=== PATIENT | male | born 1945 | race Caucasian/White ===

== ENCOUNTER 2017-10-02 20:19 | Emergency (ER) | payer OTHER ==
[~2017-10-02] VITALS: Ht 167.6 cm; Wt 79.6 kg
[2017-10-02 20:22] VITALS: Ht 167.6 cm; Wt 79.6 kg
[2017-10-02] MEDS ORDERED: SODIUM CHLORIDE 0.9% 1000ML 1,000 ML IV STA ×2 (20:33→21:39)
[2017-10-02] MEDS ORDERED: ACETAMINOPHEN 500 MG TAB PO STA (20:33)
[2017-10-02] MEDS ORDERED: ALBUT/IPRATROP 3MG/0.5MG NEB 3 ML VIAL INH STA ×2 (20:33→21:39)
--- NOTE | 2017-10-02 20:42 | EMERGENCY ROOM VISIT NOTE ---
History Report prepared by Ramon: Chandler Elizondo Under the Supervision of: Dr. Mello Banks M.D. First contact with patient: 20:30 Chief Complaint: WEAKNESS Stated Complaint: WEAK,FLUID ON LUNGS History of Present Illness The patient is a 72 year old male who presents to the Emergency Room with complaints of worsening generalized weakness for the past week. The patient additionally is complaining of cough, nasal congestion, and fluid on his lungs. He states that he does not smoke or drink alcohol, he is not on a water pill, and he has no history of heart failure. The patient states that he does not take any medications, and he has not seen his PCP in a couple of years. He denies any chest pain, nausea, vomiting, diarrhea, and pain with urination. He states that no one around him has been sick. Source of History: patient Onset: week ago Position: other (generalized) Quality: other (weakness) Timing: worsening Associated Symptoms: + cough, No chest pain, No nausea, No vomiting, No diarrhea Note: Associated symptoms: nasal congestion and fluid on his lungs. Review of Systems See HPI for pertinent positives and negatives. A total of ten systems were reviewed and were otherwise negative. Past Medical & Surgical Medical Problems: (1) Diabetes (2) HTN (hypertension) Family History Cancer Diabetes mellitus Gallbladder disease Heart disease Hypertension Social History Smoking Status: Never Smoker Housing Status: lives with family Current/Historical Medications Scheduled Levofloxacin (Levaquin), 750 MG PO DAILY Oseltamivir Phosphate (Tamiflu), 1 CAP PO BID Saccharomyces Boulardii (Florastor), 1 CAP PO BID Allergies Coded Allergies: Aspirin (Verified Allergy, Intermediate, "it puts holes in my stomach", ) Lactose (Verified Allergy, Mild, 10/16/15) INTOLERANT Physical Exam Vital Signs Date Time Temp Pulse Resp B/P (MAP) Pulse Ox O2 Delivery O2 Flow Rate FiO2 10/02/17 23:53 91 18 133/63 94 10/02/17 23:01 36.7 96 18 136/81 94 Room Air 10/02/17 22:01 95 25 133/73 94 Room Air 10/02/17 21:30 104 20 141/73 93 Room Air 10/02/17 21:11 93 10/02/17 20:22 38.5 103 24 131/76 97 Room Air Physical Exam GENERAL: Awake, alert, fatigued and uncomfortable-appearing, dyspneic, in no distress HENT: Normocephalic, atraumatic. Dry cracked mucous membranes otherwise oropharynx unremarkable. EYES: Normal conjunctiva. Sclera non-icteric. NECK: Supple. No nuchal rigidity. FROM. No JVD. RESPIRATORY: Diminished breath sounds at the bases with scant intermittent wheeze CARDIAC: Regular rate, normal rhythm. Extremities warm and well perfused. Pulses equal. ABDOMEN: Soft, non-distended. No tenderness to palpation. No rebound or guarding. No masses. RECTAL: Deferred. MUSCULOSKELETAL: Chest examination reveals no tenderness. The back is symmetrical on inspection without obvious abnormality. There is no CVA tenderness to palpation. No joint edema. LOWER EXTREMITIES: Calves are equal size bilaterally and non-tender. No edema. No discoloration. NEURO: Normal sensorium. No sensory or motor deficits noted. SKIN: No rash or jaundice noted. Medical Decision & Procedures ER Provider Diagnostic Interpretation: Radiology results as stated below per my review and radiologist interpretation: SINGLE VIEW CHEST CLINICAL HISTORY: Fever. Sepsis. FINDINGS: An AP, portable, upright chest radiograph is compared to study dated 10/16/2015. The examination is mildly degraded by portable technique and patient rotation. The heart is enlarged and there is atherosclerotic calcification of the thoracic aorta. The pulmonary vasculature is noncongested. Airspace consolidation is seen at the left lung base. The right lung appears clear. No large pleural effusion or pneumothorax is seen. The skeletal structures are osteopenic. The bony thorax is grossly intact. IMPRESSION: 1. Cardiomegaly without radiographic evidence of congestive failure. 2. There is airspace consolidation at the left lung base, likely representing pneumonia/aspiration pneumonitis. Clinical correlation will be required and radiographic follow-up to resolution is recommended. Electronically signed by: Cesar Dong M.D. 10/02/2017 9:02 PM Dictated Date/Time: 10/02/2017 9:01 PM Laboratory Results 10/02/17 20:38 Red Blood Count 5.05, Mean Corpuscular Volume 82.4, Mean Corpuscular Hemoglobin 30.7, Mean Corpuscular Hemoglobin Concent 37.3, Mean Platelet Volume 11.0, Neutrophils (%) (Auto) 69.2, Lymphocytes (%) (Auto) 16.6, Monocytes (%) (Auto) 13.7, Eosinophils (%) (Auto) 0.0, Basophils (%) (Auto) 0.2, Neutrophils # (Auto ) 4.28, Lymphocytes # (Auto) 1.03, Monocytes # (Auto) 0.85, Eosinophils # (Auto ) 0.00, Basophils # (Auto) 0.01 10/02/17 20:38 Test 10/02/17 20:38 10/02/17 20:51 10/02/17 21:00 10/02/17 21:28 White Blood Count 6.19 K/uL (4.8-10.8) Red Blood Count 5.05 M/uL (4.7-6.1) Hemoglobin 15.5 g/dL (14.0-18.0) Hematocrit 41.6 % (42-52) Mean Corpuscular Volume 82.4 fL (80-100) Mean Corpuscular Hemoglobin 30.7 pg (25-34) Mean Corpuscular Hemoglobin Concent 37.3 g/dl (32-36) Platelet Count 102 K/uL (130-400) Mean Platelet Volume 11.0 fL (7.4-10.4) Neutrophils (%) (Auto) 69.2 % Lymphocytes (%) (Auto) 16.6 % Monocytes (%) (Auto) 13.7 % Eosinophils (%) (Auto) 0.0 % Basophils (%) (Auto) 0.2 % Neutrophils # (Auto) 4.28 K/uL (1.4-6.5) Lymphocytes # (Auto) 1.03 K/uL (1.2-3.4) Monocytes # (Auto) 0.85 K/uL (0.11-0.59) Eosinophils # (Auto) 0.00 K/uL (0-0.5) Basophils # (Auto) 0.01 K/uL (0-0.2) RDW Standard Deviation 35.3 fL (36.4-46.3) RDW Coefficient of Variation 11.8 % (11.5-14.5) Immature Granulocyte % (Auto) 0.3 % Immature Granulocyte # (Auto) 0.02 K/uL (0.00-0.02) Large Platelets 1+ Microcytosis PRESENT Anion Gap 7.0 mmol/L (3-11) Est Creatinine Clear Calc Drug Dose 61.1 ml/min Estimated GFR () 77.9 Estimated GFR (Non- 67.2 BUN/Creatinine Ratio 12.6 (10-20) Calcium Level 8.3 mg/dl (8.5-10.1) Magnesium Level 1.8 mg/dl (1.8-2.4) Total Bilirubin 0.8 mg/dl (0.2-1) Direct Bilirubin 0.2 mg/dl (0-0.2) Aspartate Amino Transf (AST/SGOT) 16 U/L (15-37) Alanine Aminotransferase (ALT/SGPT) 21 U/L (12-78) Alkaline Phosphatase 66 U/L (45-117) Troponin I < 0.015 ng/ml (0-0.045) Pro-B-Type Natriuretic Peptide 450 pg/ml (0-900) Total Protein 7.2 gm/dl (6.4-8.2) Albumin 3.5 gm/dl (3.4-5.0) Lipase 119 U/L (73-393) Bedside Lactic Acid Venous 0.94 mmol/L (0.90-1.70) Influenza Type A (RT-PCR) Neg for Influ A (NEG) Influenza Type B (RT-PCR) POS for Influ B (NEG) Venous Blood pH 7.48 (7.36-7.41) Venous Blood Partial Pressure CO2 36 mmHg (38.0-50.0) Venous Blood Partial Pressure O2 46 mmHg Venous Blood HCO3 26 mmol/L Venous Blood Oxygen Saturation 82.3 % Venous Blood Base Excess 2.9 mEq/L Laboratory results reviewed by me Medications Administered Medications (Trade) Dose Ordered Sig/Amanda Route Start Time Stop Time Status Last Admin Dose Admin Sodium Chloride 1,000 ml @ 999 mls/hr Q1H1M STAT IV 10/02/17 20:33 10/02/17 21:33 DC 10/02/17 20:55 999 MLS/HR Albuterol/ Ipratropium (Duoneb) 3 ml NOW STAT INH 10/02/17 20:33 10/02/17 20:36 DC 10/02/17 20:55 3 ML Acetaminophen (Tylenol Tab) 1,000 mg NOW STAT PO 10/02/17 20:33 10/02/17 20:36 DC 10/02/17 20:55 1,000 MG Sodium Chloride ([place] Nasal [place]) 2 sprays NOW ONCE NA 10/02/17 20:45 10/02/17 20:46 DC 10/02/17 20:55 225 SPRAYS Sodium Chloride 1,000 ml @ 999 mls/hr Q1H1M STAT IV 10/02/17 21:39 10/02/17 22:39 DC 10/02/17 22:06 999 MLS/HR Dexamethasone Sodium Phosphate (Dexamethasone Inj Pf) 10 mg NOW ONCE IV 10/02/17 21:45 10/02/17 21:46 DC 10/02/17 22:07 10 MG Albuterol/ Ipratropium (Duoneb) 3 ml NOW STAT INH 10/02/17 21:39 10/02/17 21:42 DC 10/02/17 22:06 3 ML Levofloxacin (Levaquin / D5W) 750 mg NOW STAT IV 10/02/17 21:39 10/02/17 21:42 DC 10/02/17 22:06 750 MG Oseltamivir Phosphate (Tamiflu Cap) 75 mg NOW STAT PO 10/02/17 21:56 10/02/17 21:57 DC 10/02/17 22:43 75 MG Albuterol (Ventolin Hfa Inhaler) 2 puffs NOW STAT INH 10/02/17 23:16 10/02/17 23:18 DC 10/02/17 23:37 60 PUFFS ECG Per My Interpretation Indication: weakness Rate (beats per minute): 99 Rhythm: sinus with SA Findings: no acute ischemic change, left axis deviation ED Course 2030: The patient was evaluated in room C9. A complete history and physical exam was performed. 2153: I reevaluated the patient, and he was doing okay. Medical Decision I reviewed the patient's past medical history, medications, and the nursing notes as described above. Differential diagnosis: Etiologies such as infections, reactive airway disease, pneumonia, pneumothorax , COPD, CHF, cardiac ischemia, pulmonary embolism, musculoskeletal, gastrointestinal, as well as others were entertained. The patient is a 72-year-old gentleman who presents to emergency department with worsening cough, congestion, generalized weakness over the past week per hpi. On arrival the patient is fatigued and uncomfortable appearing but no acute distress, febrile to 38 0.5 and heart rate in the 100s but vital signs otherwise stable. EKG unremarkable. Chest x-ray with question of left lower lobe infiltrate. Influenza B positive. CBC, troponin, lactate, BNP within normal limits. Patient feeling improved after IV fluids, Methasone, DuoNeb, acetaminophen. Given the patient's infiltrate on chest x-ray will provide additional severe CAP coverage with Levaquin as well as treatment with Tamiflu. Plan for close PCP follow-up. Findings and plan for follow-up reviewed with patient and /daughter. Patient and family agreeable and d/c'd per discharge instructions. Medication Reconcilliation Current Medication List: was personally reviewed by me Blood Pressure Screening Patient's blood pressure: Elevated blood pressure Impression Primary Impression: Pneumonia Additional Impression: Influenza B Scribe Attestation The scribe's documentation has been prepared under my direction and personally reviewed by me in its entirety. I confirm that the note above accurately reflects all work, treatment, procedures, and medical decision making performed by me. Departure Information Dispostion Home / Self-Care Prescriptions Oseltamivir Phosphate (Tamiflu) 75 Mg Cap 1 CAP PO BID for 5 Days, #10 CAP Prov: Mello Banks M.D. 10/02/17 Saccharomyces Boulardii (Florastor) 250 Mg Cap 1 CAP PO BID for 10 Days, #20 CAP Prov: Mello Banks M.D. 10/02/17 Levofloxacin (LEVAQUIN) 750 Mg Tab 750 MG PO DAILY for 5 Days, #5 TAB Prov: Mello Banks M.D. 10/02/17 Referrals Syeda Shaikh M.D. (PCP) Patient Instructions ED Flu, ED Pneumonia Adult, My [facility] Additional Instructions Please follow up with your primary care physician in the next 1-3 days for re- evaluation. You were found to have the flu (influenza B) as well as a likely pneumonia. Otherwise, your exam, EKG, chest xray, and lab results did not show signs of an emergent condition at this time. Acetaminophen or ibuprofen for pain and fevers as needed. Tamiflu as directed. Levaquin as directed. Saline nasal spray and mucinex to help thin a clear mucus as needed. Albuterol every 4 hours for the next 48 hours and then as needed thereafter. Drink plenty of fluids to ensure hydration. Return to the emergency department for worsening symptoms as described in the accompanying instructions. Problem Qualifiers
[2017-10-02] MEDS ORDERED: SODIUM CHLORIDE 0.65% NA SOLN 45 ML (OCEAN) ONE (20:45)
--- NOTE | 2017-10-02 21:04 | DIAGNOSTIC IMAGING REPORT ---
SINGLE VIEW CHEST CLINICAL HISTORY: Fever. Sepsis. FINDINGS: An AP, portable, upright chest radiograph is compared to study dated 10/16/2015. The examination is mildly degraded by portable technique and patient rotation. The heart is enlarged and there is atherosclerotic calcification of the thoracic aorta. The pulmonary vasculature is noncongested. Airspace consolidation is seen at the left lung base. The right lung appears clear. No large pleural effusion or pneumothorax is seen. The skeletal structures are osteopenic. The bony thorax is grossly intact. IMPRESSION: 1. Cardiomegaly without radiographic evidence of congestive failure. 2. There is airspace consolidation at the left lung base, likely representing pneumonia/aspiration pneumonitis. Clinical correlation will be required and radiographic follow-up to resolution is recommended. Electronically signed by: Cesar Dong M.D. 10/02/2017 9:02 PM Dictated Date/Time: 10/02/2017 9:01 PM
[2017-10-02 21:21] LABS: HEMATOCRIT 41.6 % (42-52); HEMOGLOBIN 15.5 g/dL (14.0-18.0); MEAN CELL VOLUME 82.4 fL (80-100); MEAN CORPUSCULAR HEMOGLOBIN 30.7 pg (25-34); MEAN CORPUSCULAR HGB CONC 37.3 g/dl (32-36); PLATELET COUNT 102 K/uL (130-400); RED CELL DISTRIBUTION WIDTH CV 11.8 % (11.5-14.5); RED CELL DISTRIBUTION WIDTH SD 35.3 fL (36.4-46.3); WHITE BLOOD COUNT 6.19 K/uL (4.8-10.8)
[2017-10-02 21:30] LABS: ALBUMIN 3.5 gm/dl (3.4-5.0); ALT/SGPT 21 U/L (12-78); AST/SGOT 16 U/L (15-37); BLOOD UREA NITROGEN 14 mg/dl (7-18); CALCIUM 8.3 mg/dl (8.5-10.1); CARBON DIOXIDE 26 mmol/L (21-32); GLUCOSE 240 mg/dl (70-99); LIPASE 119 U/L (73-393); POTASSIUM 3.5 mmol/L (3.5-5.1); SODIUM 132 mmol/L (136-145)
[2017-10-02 21:35] LABS: ALKALINE PHOSPHATASE 66 U/L (45-117); TOTAL PROTEIN 7.2 gm/dl (6.4-8.2)
[2017-10-02] MEDS ORDERED: LEVAQUIN 750MG / 150ML D5W IV STA (21:39)
[2017-10-02] MEDS ORDERED: DEXAMETHASONE **PF** INJ 10 MG/ML VIAL IV ONE (21:45)
[2017-10-02 21:48] LABS: BASO % 0.2 %; BASO ABS # 0.01 K/uL (0-0.2); IG# 0.02 K/uL (0.00-0.02); LYMPH % 16.6 %; LYMPH ABS # 1.03 K/uL (1.2-3.4); MONO % 13.7 %; MONO ABS # 0.85 K/uL (0.11-0.59); NEUT % 69.2 %; NEUT ABS # 4.28 K/uL (1.4-6.5)
[2017-10-02 21:52] LABS: INFLUENZA A PCR Neg for Influ A (NEG)
[2017-10-02 21:53] LABS: INFLUENZA B PCR POS for Influ B (NEG)
[2017-10-02] MEDS ORDERED: OSELTAMIVIR PHOSPHATE 75 MG CAP PO STA (21:56)
[2017-10-02 23:01] VITALS: TEMP 36.7
[2017-10-02] MEDS ORDERED: SACC250C3 PO (23:13)
[2017-10-02] MEDS ORDERED: LEVO-18 PO (23:13)
[2017-10-02] MEDS ORDERED: OSEL75CA23 PO (23:13)
[2017-10-02] MEDS ORDERED: ALBUTEROL HFA 8 GM INHALER INH STA (23:16)
[2017-10-02 23:53] VITALS: BP 133/63; PULSE 91; O2SAT 94
== END 2017-10-02 23:55 | disposition home or self-care (01) ==
LOC: C.EDB 20:21 → C.EDC 23:55
DX: J18.9 Pneumonia, unspecified organism (principal); J10.1 Influenza due to other identified influenza virus with other respiratory manifestations; I51.7 Cardiomegaly; E11.9 Type 2 diabetes mellitus without complications; I10 Essential (primary) hypertension; Z79.899 Other long term (current) drug therapy; Z88.8 Allergy status to other drugs, medicaments and biological substances

== ENCOUNTER 2020-03-11 13:52 | Inpatient (IN) ==
--- NOTE | 2020-03-11 14:41 | XRay Report ---
XR chest 1V portable CLINICAL HISTORY: Chest Pain COMPARISON STUDY: Chest radiograph October 02, 2017. FINDINGS: Lung volumes are normal. There is no pneumothorax or pleural effusion. Right infrahilar opa city is present. Minimal left basilar opacity favors atelectasis. There is mild cardiomegaly without evidence for pulmonary edema. IMPRESSION: Right infrahilar opacity which favors an infectious process. Radiographic follow-up to e nsure resolution is recommended. ACT 112: Negative or not required by law. Electronically signed by: Mendoza Llanes M.D. 03/11/2020 2:40 PM
--- NOTE | 2020-03-11 15:08 | Emergency Department Note ---
Impression & Plan COVID-19 virus infection, Chest pain, Flu-like symptoms, Pneumonia ED Provider Note INFORMANT: Patient ED PROVIDER(S): Ahmet Valdes MD CHIEF COMPLAINT: Chest pain PLAN: Disposition: Admitted Condition: Good MEDICAL DECISION MAKING: Patient presented by direction of the doctor's office because of chest pain. He also noted flulike symptoms. He was isolated. His ECG did show poor R progression but no ST elevation or depression. The patient underwent a work-up. He had a slight decrease in his white blood cell count and platelets. His coags were negative. Patient's chemistries LFTs, troponin, and lipase were negative. His chest x-ray was concerning for a right-sided infiltrate. He had blood ultras obtained. He was given a dose of IV cefepime. Testing for novel coronavirus was performed. He was found to have a COVID-19 infection. Consultation was made with the [facility]. The patient was evaluated in the ER for further management. Triage Nursing notes reviewed and agree them. Additional history obtained from patient's daughter Mona Prior medical records reviewed provided from the office regarding his ECG and medical history of type 2 diabetes and hypertension Vital Signs: reviewed and remarkable for no significant abnormalities Differential diagnosis: Viral syndrome, cardiac ischemia, aortic dissection, pulmonary embolism, pneumothorax, pneumonia, pericarditis, myocarditis, esophageal rupture, GERD, cholecystitis, pancreatitis, musculoskeletal, as well as other pathologies. Diagnostics interpreted by me: ECG: Twelve-lead ECG reveals sinus rhythm at 90 beats per minute with PVCs and PACs. Inferior Q waves. Poor R wave progression. No ST elevation. Cardiac Monitoring: Cardiac monitoring ordered by me: The patient was placed on continuous cardiac monitoring and observed. It revealed a normal sinus rhythm at 84beats per minute without ectopy or evidence of dysrhythmia. Imaging studies: X-ray concerning for right-sided infiltrate. Consultation(s): [facility], Pippa BERGMAN. Patient will be admitted by Dr. Carballo HPI: The patient is a 74 year old male who presents to the Emergency Room with complaints of chest pain. This started this morning and is currently resolved. The patient also notes the following associated symptoms, feeling achy, mild cough. PCP office contacted the ER and noted the chest pain episode. They also noted that there are COVID positive patients in the patient's scientologist. The patient has taken no medication for relieving factors. Current pain is rated as 0/10. Pt denies LOC, headache, fevers, chills, diaphoresis, visual changes, neck pain, breathing difficulties, nausea, vomiting, abdominal pain, back pain, melena, hematochezia, urinary symptoms, numbness, weakness, lymphadenopathy, rash, or other complaints. ROS: See above HPI for pertinent positives & negatives. A total of 10 systems reviewed and were otherwise negative. PAST MEDICAL HISTORY:See Below, hypertension PAST SURGICAL HISTORY:See Below, FAMILY HISTORY:See Below SOCIAL HISTORY:See Below, retired HOME MEDICATIONS:See Below ALLERGIES:See Below VITALS:See Below PHYSICAL EXAMINATION: GENERAL: Awake, alert, well-appearing, in no distress HENT: Normocephalic, atraumatic. Oropharynx unremarkable. EYES: Normal conjunctiva. Sclera non-icteric. NECK: Inspection normal. Non-tender. Supple. No nuchal rigidity. FROM. No masses. RESPIRATORY: Clear to auscultation. No wheezes. No rales. Normal respiratory effort. CARDIAC: Normal rate. Normal rhythm. No murmurs. No rubs. Extremities warm and well perfused. Pulses equal. No JVD. GI: Soft, non-distended. No tenderness to palpation. No rebound or guarding. No masses. RECTAL: Deferred. MUSCULOSKELETAL: Atraumatic. Chest examination reveals no tenderness. The back is symmetrical on inspection without obvious abnormality. There is no CVA tenderness to palpation. No joint edema. LOWER EXTREMITIES: Calves are equal size bilaterally and non-tender. Trace edema. No discoloration. NEURO: Normal sensorium. No sensory or motor deficits noted. SKIN: No rash or jaundice noted. Ahmet Valdes MD Past Med/Surg History Medical History (Updated 03/11/20 @ 21:16 by Ahmet Valdes MD) Cancer SKIN CANCER Diabetes mellitus, type 2 NON-COMPLIANT. DOES NOT CHECK SUGARS. GI bleed BLEEDING STOMACH ULCER Hypertension Sleep apnea NON-COMPLIANT Surgical History History of colonoscopy History of esophagogastroduodenoscopy (EGD) History of nasal septoplasty Hx of radical excision of skin lesion Family History Mother Family history of diabetes mellitus Sister Family history of diabetes mellitus Aunt Family history of diabetes mellitus Aunt Family hx of colon cancer Father Family hx of colon cancer Social History Smoking Status: Never smoker Second Hand Exposure: No; Hx Alcohol Use: No Hx Substance Use: No Preferred Language: Arabic Communication Ability: Effective Family Development Extension Specialist Required: No Beliefs That Will Affect Care: None Current Living Situation: Spouse Feels Safe at Home: Yes Assistive Devices: None Allergies Allergies Allergy/AdvReac Type Severity Reaction Status Date / Time aspirin Allergy Intermediate "it puts Verified 11/24/18 11:26 holes in my stomach" Home Meds Home Medications Medication Instructions Recorded Confirmed lisinopril 10 mg PO QAM 10/29/18 03/11/20 multivitamin 1 tab PO QAM 10/29/18 03/11/20 Results & Data (ED) Vital Signs Vital Signs - 24 hr 03/11/20 13:56 03/11/20 14:13 03/11/20 14:30 Temperature 37.1 C Temperature Source Oral Pulse Rate 86 84 88 Pulse Rate from SpO2 Sensor 89 88 Respiratory Rate 16 17 28 H Respiratory Effort / Characteristics Non-Labored Respiratory Depth Normal Blood Pressure 190/99 H 197/105 H 186/98 H Blood Pressure Mean 129 135 139 Pulse Oximetry 95 96 96 Oxygen Delivery Method Room Air Sepsis Recent Fever Within 48 Hours No Sepsis New/Unexplained Change in Mental Status No Sepsis Action Taken by Nursing No Action Required 03/11/20 15:00 03/11/20 15:30 03/11/20 15:40 Temperature Temperature Source Pulse Rate 88 91 H 93 H Pulse Rate from SpO2 Sensor 82 92 H Respiratory Rate 24 23 16 Respiratory Effort / Characteristics Respiratory Depth Blood Pressure 167/97 H 179/97 H Blood Pressure Mean 124 123 Pulse Oximetry 95 95 Oxygen Delivery Method Sepsis Recent Fever Within 48 Hours Sepsis New/Unexplained Change in Mental Status Sepsis Action Taken by Nursing 03/11/20 15:41 03/11/20 15:50 03/11/20 17:17 Temperature Temperature Source Pulse Rate 100 H 103 H Pulse Rate from SpO2 Sensor Respiratory Rate 19 12 Respiratory Effort / Characteristics Respiratory Depth Blood Pressure Blood Pressure Mean Pulse Oximetry 95 Oxygen Delivery Method Room Air Sepsis Recent Fever Within 48 Hours Sepsis New/Unexplained Change in Mental Status Sepsis Action Taken by Nursing 03/11/20 17:20 03/11/20 17:30 03/11/20 17:40 Temperature Temperature Source Pulse Rate 92 H 87 88 Pulse Rate from SpO2 Sensor Respiratory Rate 23 24 28 H Respiratory Effort / Characteristics Respiratory Depth Blood Pressure 153/80 H Blood Pressure Mean 100 Pulse Oximetry Oxygen Delivery Method Sepsis Recent Fever Within 48 Hours Sepsis New/Unexplained Change in Mental Status Sepsis Action Taken by Nursing 03/11/20 17:50 03/11/20 18:00 03/11/20 18:10 Temperature Temperature Source Pulse Rate 86 91 H 85 Pulse Rate from SpO2 Sensor Respiratory Rate 26 H 25 H 28 H Respiratory Effort / Characteristics Respiratory Depth Blood Pressure 152/84 H Blood Pressure Mean 89 Pulse Oximetry Oxygen Delivery Method Sepsis Recent Fever Within 48 Hours Sepsis New/Unexplained Change in Mental Status Sepsis Action Taken by Nursing 03/11/20 18:20 03/11/20 19:32 03/11/20 20:48 Temperature Temperature Source Pulse Rate 87 Pulse Rate from SpO2 Sensor Respiratory Rate 24 Respiratory Effort / Characteristics Respiratory Depth Blood Pressure 106/92 149/97 H Blood Pressure Mean 96 104 Pulse Oximetry Oxygen Delivery Method Sepsis Recent Fever Within 48 Hours Sepsis New/Unexplained Change in Mental Status Sepsis Action Taken by Nursing 03/11/20 20:49 03/11/20 20:50 03/11/20 21:00 Temperature Temperature Source Pulse Rate 101 H 96 H 95 H Pulse Rate from SpO2 Sensor Respiratory Rate 19 28 H Respiratory Effort / Characteristics Respiratory Depth Blood Pressure 139/90 Blood Pressure Mean 105 Pulse Oximetry Oxygen Delivery Method Sepsis Recent Fever Within 48 Hours Sepsis New/Unexplained Change in Mental Status Sepsis Action Taken by Nursing Laboratory Data Result diagrams: 03/11/20 15:30 03/11/20 15:30 Lab Results 03/11/20 03/11/20 03/11/20 Range/Units 15:30 15:30 15:30 WBC 3.39 L (4.8-10.8) K/uL RBC 5.20 (4.7-6.1) M/uL Hgb 15.0 (14.0-18.0) g/dL Hct 43.9 (42-52) % MCV 84.4 (80-100) fL MCH 28.8 (25-34) pg MCHC 34.2 (32-36) g/dL RDW Std Deviation 36.7 (36.4-46.3) fL RDW Coeff of Oswaldo 11.9 (11.5-14.5) % Plt Count 103 L (130-400) K/uL MPV 11.7 H (7.4-10.4) fL Immature Gran % (Auto) 0.0 % Neut % (Auto) 61.1 % Lymph % (Auto) 23.0 % [place] % (Auto) 15.6 % Eos % (Auto) 0.0 % Baso % (Auto) 0.3 % Neut # (Auto) 2.07 (1.4-6.5) K/uL Lymph # (Auto) 0.78 L (1.2-3.4) K/uL [place] # (Auto) 0.53 (0.11-0.59) K/uL Eos # (Auto) 0.00 (0-0.5) K/uL Baso # (Auto) 0.01 (0-0.2) K/uL Immature Gran # (Auto) 0.00 (0.00-0.02) K/uL PT 11.2 (9.0-12.0) Seconds INR 1.1 (0.9-1.1) APTT 32.5 H (21.0-31.0) Seconds PTT Ratio 1.2 D-Dimer (0-500) ug/L FEU Sodium 135 L (136-145) mmol/L Potassium 3.4 L (3.5-5.1) mmol/L Chloride 100 (98-107) mmol/L Carbon Dioxide 27 (21-32) mmol/L Anion Gap 8.0 (3-11) BUN 18 (7-18) mg/dl Creatinine 1.16 (0.6-1.4) mg/dl Est Cr Clr Drug Dosing 56.9 ml/min Est GFR ( Amer) 72.0 Est GFR (Non-Af Amer) 62.1 BUN/Creatinine Ratio 15.6 (10-20) Glucose 188 H (70-99) mg/dl Calcium 8.4 L (8.5-10.1) mg/dl Magnesium (1.8-2.4) mg/dl Ferritin (8-388) ng/ml Total Bilirubin 0.6 (0.2-1) mg/dl AST 29 (15-37) U/L ALT 21 (12-78) U/L Alkaline Phosphatase 49 (45-117) U/L Total Creatine Kinase (39-308) U/L Troponin I 0.017 (0-0.045) ng/ml C-Reactive Protein (0-0.29) mg/dl Total Protein 7.1 (6.4-8.2) gm/dl Albumin 3.0 L (3.4-5.0) gm/dl Globulin 4.1 H (2.5-4.0) gm/dl Albumin/Globulin Ratio 0.7 L (0.9-2) Lipase 214 (73-393) U/L Procalcitonin (0-0.5) ng/ml TSH (0.300-4.500) uIu/ml Specimen Hemolysis COVID-19 Eval Order COVID-19 PCR (Negative) 03/11/20 03/11/20 03/11/20 Range/Units 15:30 15:30 15:30 WBC (4.8-10.8) K/uL RBC (4.7-6.1) M/uL Hgb (14.0-18.0) g/dL Hct (42-52) % MCV (80-100) fL MCH (25-34) pg MCHC (32-36) g/dL RDW Std Deviation (36.4-46.3) fL RDW Coeff of Oswaldo (11.5-14.5) % Plt Count (130-400) K/uL MPV (7.4-10.4) fL Immature Gran % (Auto) % Neut % (Auto) % Lymph % (Auto) % [place] % (Auto) % Eos % (Auto) % Baso % (Auto) % Neut # (Auto) (1.4-6.5) K/uL Lymph # (Auto) (1.2-3.4) K/uL [place] # (Auto) (0.11-0.59) K/uL Eos # (Auto) (0-0.5) K/uL Baso # (Auto) (0-0.2) K/uL Immature Gran # (Auto) (0.00-0.02) K/uL PT (9.0-12.0) Seconds INR (0.9-1.1) APTT (21.0-31.0) Seconds PTT Ratio D-Dimer 970 H* (0-500) ug/L FEU Sodium (136-145) mmol/L Potassium (3.5-5.1) mmol/L Chloride (98-107) mmol/L Carbon Dioxide (21-32) mmol/L Anion Gap (3-11) BUN (7-18) mg/dl Creatinine (0.6-1.4) mg/dl Est Cr Clr Drug Dosing ml/min Est GFR ( Amer) Est GFR (Non-Af Amer) BUN/Creatinine Ratio (10-20) Glucose (70-99) mg/dl Calcium (8.5-10.1) mg/dl Magnesium (1.8-2.4) mg/dl Ferritin (8-388) ng/ml Total Bilirubin (0.2-1) mg/dl AST (15-37) U/L ALT (12-78) U/L Alkaline Phosphatase (45-117) U/L Total Creatine Kinase (39-308) U/L Troponin I (0-0.045) ng/ml C-Reactive Protein (0-0.29) mg/dl Total Protein (6.4-8.2) gm/dl Albumin (3.4-5.0) gm/dl Globulin (2.5-4.0) gm/dl Albumin/Globulin Ratio (0.9-2) Lipase (73-393) U/L Procalcitonin (0-0.5) ng/ml TSH (0.300-4.500) uIu/ml Specimen Hemolysis COVID-19 Eval Order Covid19 Done at [facility] COVID-19 PCR POSITIVE A* (Negative) 03/11/20 03/11/20 Range/Units 15:30 20:15 WBC (4.8-10.8) K/uL RBC (4.7-6.1) M/uL Hgb (14.0-18.0) g/dL Hct (42-52) % MCV (80-100) fL MCH (25-34) pg MCHC (32-36) g/dL RDW Std Deviation (36.4-46.3) fL RDW Coeff of Oswaldo (11.5-14.5) % Plt Count (130-400) K/uL MPV (7.4-10.4) fL Immature Gran % (Auto) % Neut % (Auto) % Lymph % (Auto) % [place] % (Auto) % Eos % (Auto) % Baso % (Auto) % Neut # (Auto) (1.4-6.5) K/uL Lymph # (Auto) (1.2-3.4) K/uL [place] # (Auto) (0.11-0.59) K/uL Eos # (Auto) (0-0.5) K/uL Baso # (Auto) (0-0.2) K/uL Immature Gran # (Auto) (0.00-0.02) K/uL PT (9.0-12.0) Seconds INR (0.9-1.1) APTT (21.0-31.0) Seconds PTT Ratio D-Dimer (0-500) ug/L FEU Sodium (136-145) mmol/L Potassium (3.5-5.1) mmol/L Chloride (98-107) mmol/L Carbon Dioxide (21-32) mmol/L Anion Gap (3-11) BUN (7-18) mg/dl Creatinine (0.6-1.4) mg/dl Est Cr Clr Drug Dosing ml/min Est GFR ( Amer) Est GFR (Non-Af Amer) BUN/Creatinine Ratio (10-20) Glucose (70-99) mg/dl Calcium (8.5-10.1) mg/dl Magnesium 2.0 (1.8-2.4) mg/dl Ferritin 637.0 H (8-388) ng/ml Total Bilirubin (0.2-1) mg/dl AST (15-37) U/L ALT (12-78) U/L Alkaline Phosphatase (45-117) U/L Total Creatine Kinase 157 (39-308) U/L Troponin I (0-0.045) ng/ml C-Reactive Protein 7.29 H (0-0.29) mg/dl Total Protein (6.4-8.2) gm/dl Albumin (3.4-5.0) gm/dl Globulin (2.5-4.0) gm/dl Albumin/Globulin Ratio (0.9-2) Lipase (73-393) U/L Procalcitonin 0.07 (0-0.5) ng/ml TSH 2.060 (0.300-4.500) uIu/ml Specimen Hemolysis COVID-19 Eval Order COVID-19 PCR (Negative) Administered Medications Ceftriaxone Sodium 1,000 mg/ (Dextrose) 50 mls @ 100 mls/hr IV Q24H CIERA; Protocol Stop: 03/18/20 20:29 Last Admin: 03/11/20 21:00 Dose: 100 mls/hr Documented by: [id number] Discontinued Medications Albuterol (Albuterol Hfa 8 Gm Inhaler) 2 puffs INH NOW ONE Stop: 03/11/20 19:43 Last Admin: 03/11/20 21:00 Dose: 2 puffs Documented by: [id number] Ceftriaxone Sodium (Ceftriaxone Sodium 1000mg/50ml D5w) Confirm Administered Dose 1,000 mg IV .STK-MED ONE Stop: 03/11/20 20:44 Last Admin: 03/11/20 21:00 Dose: Not Given Documented by: [id number] Cefepime HCl (Maxipime) 2,000 mg in 20 mls @ 5 mls/min IV NOW STA; Protocol Stop: 03/11/20 17:51 Last Admin: 03/11/20 20:59 Dose: Not Given Documented by: [id number] Potassium Chloride (Potassium Chloride 20 Meq Tabcr) 40 meq PO NOW STA Stop: 03/11/20 19:31 Last Admin: 03/11/20 20:59 Dose: 40 meq Documented by: [id number] Discharge Plan Visit Data Chief Complaint: Chest Pain Stated Complaint: CHEST PAIN ED Provider: Ahmet Valdes Discharge Problem: COVID-19 virus infection, Chest pain, Flu-like symptoms, Pneumonia Forms Stand Alone Forms: [facility] Prescriptions Prescriptions: No Action multivitamin Tablet 1 tab PO QAM RF: 0 lisinopril 10 mg Tablet 10 mg PO QAM RF: 0
[2020-03-11 15:54] LABS: Basophils # (auto) 0.01 K/uL (0-0.2); Basophils % (auto) 0.3 %; Hematocrit (blood only) 43.9 % (42-52); Lymphocytes # (auto) 0.78 K/uL (1.2-3.4); Mean Corpuscular Hemoglobin 28.8 pg (25-34); Mean Corpuscular Hgb Conc 34.2 g/dL (32-36); Mean Corpuscular Volume 84.4 fL (80-100); Mean Platelet Volume 11.7 fL (7.4-10.4); Monocytes # (auto) 0.53 K/uL (0.11-0.59); Monocytes % (auto) 15.6 %; Neutrophils # (auto) 2.07 K/uL (1.4-6.5); Neutrophils % (auto) 61.1 %; Platelet Count 103 K/uL (130-400); RDW Coefficient of Variation 11.9 % (11.5-14.5); RDW Standard Deviation 36.7 fL (36.4-46.3); White Blood Count 3.39 K/uL (4.8-10.8)
[2020-03-11 16:04] LABS: INR 1.1 (0.9-1.1); Partial Thromboplastin Ratio 1.2; Partial Thromboplastin Time 32.5 Seconds (21.0-31.0); Prothrombin Time 11.2 Seconds (9.0-12.0)
[2020-03-11 16:12] LABS: BUN Creatinine Ratio 15.6 (10-20); Calcium 8.4 mg/dl (8.5-10.1); Creatinine Clr Calc Pharmacy 56.9 ml/min; Est GFR (Non-African American) 62.1; Potassium 3.4 mmol/L (3.5-5.1)
[2020-03-11 16:17] LABS: Albumin Globulin Ratio 0.7 (0.9-2); Bilirubin,Total 0.6 mg/dl (0.2-1); Globulin 4.1 gm/dl (2.5-4.0); Total Protein 7.1 gm/dl (6.4-8.2); Troponin I 0.017 ng/ml (0-0.045)
--- NOTE | 2020-03-11 16:33 | Electrocardiogram Report ---
Test Reason : Blood Pressure : / mmHG Vent. Rate : 090 BPM Atrial Rate : 090 BPM P-R Int : 144 ms QRS Dur : 102 ms QT Int : 364 ms P-R-T Axes : 000 -20 037 degrees QTc Int : 445 ms Poor data quality, interpretation may be adversely affected Sinus rhythm with occasional Premature ventricular complexes and Premature atrial complexes Inferior infarct (cited on or before 16-OCT-2015) Abnormal ECG When compared with ECG of 02-OCT-2017 20:45, Premature ventricular complexes are now Present Confirmed by Donavon Alvarez ([id number]) on 03/11/2020 4:33:10 PM Referred By: Confirmed By:Flynn Alvarez
[2020-03-11] MEDS ORDERED: CEFEPIME 2,000 MG/20 ML VIAL IV STA (17:48)
[2020-03-11 19:30] LABS: D Dimer 970 ug/L FEU (0-500)
[2020-03-11] MEDS ORDERED: POTASSIUM CHLORIDE 20 MEQ TABCR PO STA (19:30)
[2020-03-11] MEDS ORDERED: ALBUTEROL HFA 8 GM INHALER INH ONE (19:42)
[2020-03-11 20:18] LABS: C Reactive Protein 7.29 mg/dl (0-0.29)
--- NOTE | 2020-03-11 20:23 | History & Physical Report ---
Date of Service March 11, 2020 Assessment & Plan (1) Sepsis: COVID-19 pneumonia with superimposed bacterial infection chronic systolic heart failure (EF 45%, TTE 2019), patient euvolemic to dry hypertension, slight elevated DM 2 diet-controlled, suboptimal control as of recent hemoglobin A1c of 12.01 Oct 2018 medication/medical care noncompliance as per records. Chronic thrombocytopenia Medical telemetry Cultures, Ceftriaxone, Doxycycline Facilitate home BP meds, may need dose titration basal insulin, ISS BG goal [id number], update hemoglobin A1c, DM education DVT prophylaxis with SCDs RE thrombocytopenia Full code Text document was generated using [employer] voice recognition software. It may contain grammatical or spelling errors. Kindly contact undersigned for clarification of any documentation item in question. History of Present Illness Chief Complaint: Cough, shortness of breath Primary Care Provider: NO PCP History obtained from patient and records. Medical history significant for chronic systolic heart failure (EF 45%, TTE 2019), hypertension, hyperlipidemia, DM 2 diet-controlled, chronic thrombocytopenia, skin cancer status post surgery, medication/medical care noncompliance as per records. 1 week history of cough symptoms initially dry later productive of yellow sputum. Denies chest pain. Some shortness of breath as per patient. COVID-19 contacts at [facility]. No aspiration. Some chills at home. Patient seen at PCP's office. Directed to the ER for evaluation. Medical History as above Surgical History : Tonsillectomy/adenoidectomy, nasal septum repair, scalp skin cancer surgery Family History : Diabetes, colorectal cancer Personal/Social history : Non-smoker, no EtOH intake, retired from road crew garage laborer Allergies Allergy/AdvReac Type Severity Reaction Status Date / Time aspirin Allergy Intermediate "it puts Verified 11/24/18 11:26 holes in my stomach" Home Medications Home Medications Medication Instructions Recorded Confirmed Type lisinopril 10 mg PO QAM 10/29/18 03/11/20 History multivitamin 1 tab PO QAM 10/29/18 03/11/20 History Past Med/Surg History Medical History (Updated 03/12/20 @ 03:43 by Markos Carballo MD) Cancer SKIN CANCER Diabetes mellitus, type 2 NON-COMPLIANT. DOES NOT CHECK SUGARS. GI bleed BLEEDING STOMACH ULCER Hypertension Sleep apnea NON-COMPLIANT Surgical History History of colonoscopy History of esophagogastroduodenoscopy (EGD) History of nasal septoplasty Hx of radical excision of skin lesion Family History Mother Family history of diabetes mellitus Sister Family history of diabetes mellitus Aunt Family history of diabetes mellitus Aunt Family hx of colon cancer Father Family hx of colon cancer Social History Smoking Status: Never smoker Second Hand Exposure: No; Hx Alcohol Use: No Hx Substance Use: No Preferred Language: Frisian Communication Ability: Effective Social Professionals Required: No Beliefs That Will Affect Care: None Current Living Situation: Spouse Other Information That Helps Us Care for You: No Feels Safe at Home: Yes Safety Concerns: Feels Safe At This Time Assistive Devices: None Review of Systems Review of Systems: As per HPI, all 10 systems reviewed, all other ROS negative Physical Exam Physical Exam: GENERAL: Slightly uncomfortable, minimal respiratory distress SKIN: Normal color, warm HEENT: [place] palpebral conjunctivae, no ptosis, dry buccal mucosa NECK : Supple, no tenderness CHEST : Decreased breath sounds, occasional expiratory wheezes, no tenderness HEART : RRR, no obvious murmurs ABDOMEN: Some distention, nontender EXTREMITIES : No LE swelling/tenderness, no other conspicuous deformities noted NEUROLOGIC : Coherent, no facial asymmetry, mild hearing impairment, no other gross focality Results & Data Results & Data ([facility]) Vital Signs (Past 12 Hours) Vital Signs Temp Pulse Resp BP Pulse Ox 03/11/20 18:20 87 24 03/11/20 18:10 85 28 H 03/11/20 18:00 91 H 25 H 152/84 H 03/11/20 17:50 86 26 H 03/11/20 17:40 88 28 H 03/11/20 17:30 87 24 153/80 H 03/11/20 17:20 92 H 23 03/11/20 17:17 103 H 12 03/11/20 15:50 100 H 19 03/11/20 15:41 95 03/11/20 15:40 93 H 16 03/11/20 15:30 91 H 23 179/97 H 95 03/11/20 15:00 88 24 167/97 H 95 03/11/20 14:30 88 28 H 186/98 H 96 03/11/20 14:13 84 17 197/105 H 96 03/11/20 13:56 37.1 C 86 16 190/99 H 95 Laboratory Results Laboratory Results WBC 3.39 K/uL (4.8-10.8) L 03/11/20 15:30 RBC 5.20 M/uL (4.7-6.1) 03/11/20 15:30 Hgb 15.0 g/dL (14.0-18.0) 03/11/20 15:30 Hct 43.9 % (42-52) 03/11/20 15:30 MCV 84.4 fL (80-100) 03/11/20 15:30 MCH 28.8 pg (25-34) 03/11/20 15: MCHC 34.2 g/dL (32-36) 03/11/20 15:30 RDW Std Deviation 36.7 fL (36.4-46.3) 03/11/20 15: RDW Coeff of Oswaldo 11.9 % (11.5-14.5) 03/11/20 15: Plt Count 103 K/uL (130-400) L 03/11/20 15:30 MPV 11.7 fL (7.4-10.4) H 03/11/20 15:30 Immature Gran % (Auto) 0.0 % 03/11/20 15:30 Neut % (Auto) 61.1 % 03/11/20 15:30 Lymph % (Auto) 23.0 % 03/11/20 15:30 [place] % (Auto) 15.6 % 03/11/20 15:30 Eos % (Auto) 0.0 % 03/11/20 15:30 Baso % (Auto) 0.3 % 03/11/20 15:30 Neut # (Auto) 2.07 K/uL (1.4-6.5) 03/11/20 15:30 Lymph # (Auto) 0.78 K/uL (1.2-3.4) L 03/11/20 15:30 [place] # (Auto) 0.53 K/uL (0.11-0.59) 03/11/20 15:30 Eos # (Auto) 0.00 K/uL (0-0.5) 03/11/20 15:30 Baso # (Auto) 0.01 K/uL (0-0.2) 03/11/20 15:30 Immature Gran # (Auto) 0.00 K/uL (0.00-0.02) 03/11/20 15:30 PT 11.2 Seconds (9.0-12.0) 03/11/20 15:30 INR 1.1 (0.9-1.1) 03/11/20 15:30 APTT 32.5 Seconds (21.0-31.0) H 03/11/20 15:30 PTT Ratio 1.2 03/11/20 15:30 D-Dimer 970 ug/L FEU (0-500) H* 03/11/20 15:30 Sodium 135 mmol/L (136-145) L 03/11/20 15:30 Potassium 3.4 mmol/L (3.5-5.1) L 03/11/20 15:30 Chloride 100 mmol/L (98-107) 03/11/20 15:30 Carbon Dioxide 27 mmol/L (21-32) 03/11/20 15:30 Anion Gap 8.0 (3-11) 03/11/20 15:30 BUN 18 mg/dl (7-18) 03/11/20 15:30 Creatinine 1.16 mg/dl (0.6-1.4) 03/11/20 15:30 Est Cr Clr Drug Dosing 56.9 ml/min 03/11/20 15:30 Est GFR ( Amer) 72.0 03/11/20 15:30 Est GFR (Non-Af Amer) 62.1 03/11/20 15:30 BUN/Creatinine Ratio 15.6 (10-20) 03/11/20 15:30 Glucose 188 mg/dl (70-99) H 03/11/20 15:30 Calcium 8.4 mg/dl (8.5-10.1) L 03/11/20 15:30 Magnesium 2.0 mg/dl (1.8-2.4) 03/11/20 15:30 Ferritin 637.0 ng/ml (8-388) H 03/11/20 15:30 Total Bilirubin 0.6 mg/dl (0.2-1) 03/11/20 15:30 AST 29 U/L (15-37) 03/11/20 15:30 ALT 21 U/L (12-78) 03/11/20 15:30 Alkaline Phosphatase 49 U/L (45-117) 03/11/20 15:30 Total Creatine Kinase 157 U/L (39-308) 03/11/20 15:30 Troponin I 0.017 ng/ml (0-0.045) 03/11/20 15:30 C-Reactive Protein 7.29 mg/dl (0-0.29) H 03/11/20 15:30 Total Protein 7.1 gm/dl (6.4-8.2) 03/11/20 15:30 Albumin 3.0 gm/dl (3.4-5.0) L 03/11/20 15:30 Globulin 4.1 gm/dl (2.5-4.0) H 03/11/20 15:30 Albumin/Globulin Ratio 0.7 (0.9-2) L 03/11/20 15:30 Lipase 214 U/L (73-393) 03/11/20 15:30 Specimen Hemolysis 03/11/20 15:30 COVID-19 Eval Order Covid19 Done at [facility] 03/11/20 15:30 COVID-19 PCR POSITIVE (Negative) A* 03/11/20 15:30 Diagnostic Findings Chest x-ray : Right infrahilar opacity which favors an infectious process. Radiographic follow-up to ensure resolution is recommended. EKG as per my interpretation : Rate 90, normal sinus rhythm, LAD, LAFB, PVCs
[2020-03-11] MEDS ORDERED: cefTRIAXone SODIUM 1000MG/50ML D5W IV ONE (20:43)
[2020-03-11] MEDS ORDERED: DOXYCYCLINE HYCLATE 100 MG in DEXTROSE 5% 100 ML IV STA (21:00)
[2020-03-11] MEDS: cefTRIAXone SODIUM 1,000 MG in DEXTROSE 5% 50 ML IV SCH (21:00)
[2020-03-11 21:07] LABS: Thyroid Stimulating Hormone 2.06 uIu/ml (0.300-4.500)
[2020-03-11] MEDS ORDERED: CARBOHYDRATES FOR HYPOGLYCEMIA PO PRN (22:31)
[2020-03-11] MEDS ORDERED: ACETAMINOPHEN 325 MG TAB PO PRN (22:31)
[2020-03-11] MEDS ORDERED: DEXTROSE 50% 50 ML SYRINGE IV PRN (22:31)
[2020-03-11] MEDS ORDERED: PROMETHAZINE HCL 6.25 MG in SODIUM CHLORIDE 0.9% 50 ML IV PRN (22:31)
[2020-03-11] MEDS ORDERED: GLUCOSE 10 TABS/TUBE PO PRN (22:31)
[2020-03-11] MEDS ORDERED: INSULIN GLARGINE SOLOSTAR 100 UNITS/ML 3 ML PEN SC SCH (22:31)
[2020-03-11] MEDS ORDERED: GLUCAGON FOR INJ 1 MG VIAL SQ PRN (22:31)
[2020-03-11] MEDS ORDERED: LEVALBUTEROL TARTRATE 15 GM HFA.AER.AD INH PRN (22:31)
[2020-03-11] MEDS ORDERED: traMADol HCL 50 MG TABLET PO PRN (22:31)
[2020-03-11] MEDS ORDERED: GLUCOSE 40% GEL 15 GM TUBE PO PRN (22:31)
[2020-03-11] MEDS ORDERED: POTASSIUM CHLORIDE 40 MEQ in SODIUM CHLORIDE 0.9% 1000ML 1,000 ML IV ONE (23:00)
[2020-03-12] MEDS: INSULIN ASPART 100 UNITS/ML 3 ML PEN SC SCH ×5 (00:17→20:44)
[2020-03-12] MEDS ORDERED: INSULIN GLARGINE SOLOSTAR 100 UNITS/ML 3 ML PEN SC STA (03:26)
[2020-03-12 06:43] LABS: Hematocrit (blood only) 37.5 % (42-52); Hemoglobin 13.1 g/dL (14.0-18.0); Mean Corpuscular Hemoglobin 29.6 pg (25-34); Mean Corpuscular Hgb Conc 34.9 g/dL (32-36); Mean Corpuscular Volume 84.7 fL (80-100); RDW Coefficient of Variation 11.9 % (11.5-14.5); RDW Standard Deviation 36.9 fL (36.4-46.3); Red Blood Count 4.43 M/uL (4.7-6.1); White Blood Count 3.94 K/uL (4.8-10.8)
[2020-03-12 07:09] LABS: Basophils # (auto) 0.01 K/uL (0-0.2); Basophils % (auto) 0.3 %; Lymphocytes # (auto) 1.09 K/uL (1.2-3.4); Lymphocytes % (auto) 27.7 %; Mean Platelet Volume 11.3 fL (7.4-10.4); Monocytes # (auto) 0.56 K/uL (0.11-0.59); Monocytes % (auto) 14.2 %; Neutrophils # (auto) 2.28 K/uL (1.4-6.5); Neutrophils % (auto) 57.8 %; Platelet Count 95 K/uL (130-400); Platelet Estimate Decreased (Normal)
[2020-03-12 07:13] LABS: BUN Creatinine Ratio 17.4 (10-20); Calcium 8.1 mg/dl (8.5-10.1); Creatinine Clr Calc Pharmacy 67.6 ml/min; Est GFR (African American) 89.4; Est GFR (Non-African American) 77.1; Potassium 3.5 mmol/L (3.5-5.1)
[2020-03-12 07:32] LABS: Estimated Average Glucose 258 mg/dl; Hemoglobin A1C 10.6 % (4.5-5.6)
[2020-03-12] MEDS: DOXYCYCLINE HYCLATE 100 MG CAP PO SCH ×2 (08:20→20:36)
[2020-03-12] MEDS: lisinopriL 10 MG TAB PO SCH (08:20)
[2020-03-12] MEDS: MULTIVITAMIN TAB PO SCH (08:20)
[2020-03-12] MEDS ORDERED: ENOXAPARIN INJ 30 MG/0.3 ML SYR SQ SCH (09:45)
[2020-03-12] MEDS ORDERED: PHARMACY GLYCEMIC MGMT CONSULT ONE (10:18)
[2020-03-12] MEDS: ENOXAPARIN INJ 40 MG/0.4 ML SYR SQ SCH (10:56)
[2020-03-12] MEDS: dexAMETHasone 6 MG in SYRINGE 0 ML IV SCH (10:57)
[2020-03-12] MEDS: FAMOTIDINE 10 MG TABLET PO SCH ×2 (10:57→20:36)
[2020-03-12] MEDS ORDERED: PHARMACY GLYCEMIC MGMT CONSULT PRN (11:00)
--- NOTE | 2020-03-12 13:07 | Pharmacy Report ---
Glycemic Control Consultation - Date of Service March 12, 2020 - Scope Scope: Glycemic Pharmacist consulted for glycemic control and to write orders per [facility] inpatient glycemic control protocol. - Objective Weight: 80.5 kg Accuchecks BSG (last 24hrs): 03/11/20 03/11/20 03/12/20 15:30 22:29 06:26 Glucose 188 H 133 H POC Glucose 240 H 03/12/20 03/12/20 07:42 11:23 Glucose POC Glucose 137 H 234 H Laboratory Data (last 24hrs): 03/11/20 03/12/20 15:30 06:26 Potassium 3.4 L 3.5 Carbon Dioxide 27 26 Anion Gap 8.0 7.0 Creatinine 1.16 0.97 Est Cr Clr Drug Dosing 56.9 67.6 HbA1c: Hemoglobin A1c 10.6 % (4.5-5.6) H 03/11/20 15:30 - Recent Pertinent Medications Outpatient Anti-diabetic Regimen: * n/a * A1c = 10.6 % 03/11/20 The patient is currently receiving: * Basal insulin: Lantus 10 units every 24 hours * Correctional Insulin: Novolog Correction per scale ACHS Goal Range: Low 120 mg/dL - High 160 mg/dL Correction Factor: 25 mg/dL/unit * Prandial insulin: Per carb ratio of 1 unit per 15 grams CHO consumed * Oral Agents: Risk Factors for Insulin Resistance: * Steroids: dexamethasone 6 mg IV q24 hours * Infection: doxycycline and Rocephin; patient is COVID positive * Diet: T2DM - Assessment & Plan Assessment & Plan: ASSESSMENT: * Mr Christine is a 74 y/o M with uncontrolled T2DM who presents with COVID and pneumonia. Patient to be started on dexamethasone 6 mg IV daily today. * BSG on presentation was 188 mg/dL. Patient received 3 units of Novolog yesterday evening and 10 units of Lantus throughout the night. Fasting this morning was 137 mg/dL. * Will start Lantus 15 units tonight --- expect basal needs to increase with dexamethasone given. * Start weight-based stress of 3 Novolog. * Overnight checks added. PLAN FOR INPATIENT GLYCEMIC CONTROL: * Basal insulin * Lantus 15 units SQ HS * Bolus insulin * NovoLog per scale ACHS or Q6hrs while NPO * Goal Range: Low 110 mg/dL - High 140 mg/dL * Correction Factor: 20 mg/dL/unit * Nutritional / Prandial insulin per carb ratio of 1 unit per 7 grams CHO consumed * Please note that the plan above was derived based on current level of insulin resistance and hospital stress. These recommendations are appropriate for inpatient admission only. Plan of care upon discharge will need to be reassessed to avoid potential outpatient hypo/hyperglycemia. Thank you.
--- NOTE | 2020-03-12 17:30 | Hospitalist Progress Note ---
Date of Service March 12, 2020 Assessment & Plan (1) Sepsis: COVID-19 Pneumonia Acute respiratory failure with hypoxia CXR:Right infrahilar opacity which favors an infectious process. Radiographic follow-up to ensure resolution is recommended. No Hypercarbia on VBG Lymphocytes:1090 Procalcitonin:0.07 CRP 7.29 Ferritin 637 D-dimer 970 Blood cultures: No growth to date Appreciate Pulmonology Input Started on dexamethasone as per protocol May not benefit from Remdesivir currently--Reconsider if needed Counseled on Proning On Empiric antibiotics Continue supplemental oxygen to keep Sats >94% On Lovenox for DVT Px IVONNE Non compliant with CPAP May need to check for Nocturnal Oximetry prior to discharge DM II Uncontrolled HbA1C: 10.6 Not on any medications at home Elevated BGs--worsened due to steroids Continue Insulin while hospitalized Monitor BGs Chronic systolic heart failure EF 45%, TTE 2018 Monitor volume status Not on diuretics at home Hypertension BP stable Continue Lisinopril Chronic Thrombocytopenia No bleeding issues Monitor Platelets DVT Px: Lovenox SQ Monitor platelets Code Status Full Code Admission and Anticipated Discharge Date Admission Date: March 11, 2020 Subjective Patient is seen and examined at bedside Sitting in chair comfortably during my encounter Denies dyspnea Cough better when compared to presentation Denies chest pain, nausea, vomiting, abdominal pain, diarrhea Discussed with patient's daughter over the phone Also discussed with pulmonology Offers no other complaints Review of Systems Review of Systems: All systems reviewed & are unremarkable except as noted in HPI & below Physical Exam Physical Exam: Physical Exam: Vitals signs as noted above General Appearance:Moderately built and nourished, no apparent distress Head: normocephalic, Atraumatic Eyes: normal inspection, EOMI Neck: supple, Trachea midline Respiratory/Chest: Normal breath sounds, CTA Cardiovascular: S1, S2, No murmur Abdomen/GI:Soft, Non tender, Bowel sounds present Extremities/Musculoskelatal:normal inspection, no edema Neurologic/Psych:AAOX3, grossly no focal neurological deficits Skin: normal color, warm Results & Data Results & Data ([facility]) Vital Signs (Past 12 Hours) Vital Signs Temp Pulse Resp BP Pulse Ox 03/12/20 16:00 36.8 C 70 22 131/74 94 03/12/20 15:57 36.4 C L 74 21 133/80 97 03/12/20 12:00 36.8 C 88 20 146/92 H 96 03/12/20 08:00 36.6 C 84 20 153/93 H 95 Laboratory Results Short CBC 03/12/20 Range/Units 06:26 WBC 3.94 L (4.8-10.8) K/uL Hgb 13.1 L (14.0-18.0) g/dL Hct 37.5 L (42-52) % Plt Count 95 L (130-400) K/uL BMP 03/12/20 06:26 Sodium 139 Potassium 3.5 Chloride 106 Carbon Dioxide 26 BUN 17 Creatinine 0.97 Glucose 133 H Calcium 8.1 L Cardiac Enzymes 03/11/20 Range/Units 15:30 Total Creatine Kinase 157 (39-308) U/L
[2020-03-12] MEDS: cefTRIAXone SODIUM 1,000 MG in DEXTROSE 5% 50 ML IV SCH (20:14)
[2020-03-12] MEDS ORDERED: INSULIN GLARGINE SOLOSTAR 100 UNITS/ML 3 ML PEN SC SCH ×2 (21:00)
[2020-03-13] MEDS: INSULIN ASPART 100 UNITS/ML 3 ML PEN SC SCH ×6 (01:04→21:02)
[2020-03-13 07:24] LABS: BUN Creatinine Ratio 24.5 (10-20); Calcium 8.5 mg/dl (8.5-10.1); Creatinine Clr Calc Pharmacy 60.8 ml/min; Est GFR (African American) 78.5; Est GFR (Non-African American) 67.7
[2020-03-13] MEDS: ENOXAPARIN INJ 40 MG/0.4 ML SYR SQ SCH (09:11)
[2020-03-13] MEDS: lisinopriL 10 MG TAB PO SCH (09:12)
[2020-03-13] MEDS: FAMOTIDINE 10 MG TABLET PO SCH ×2 (09:12→21:28)
[2020-03-13] MEDS: MULTIVITAMIN TAB PO SCH (09:12)
[2020-03-13] MEDS: dexAMETHasone 6 MG in SYRINGE 0 ML IV SCH (09:12)
[2020-03-13] MEDS: DOXYCYCLINE HYCLATE 100 MG CAP PO SCH ×2 (09:12→21:28)
[2020-03-13] MEDS: INSULIN GLARGINE SOLOSTAR 100 UNITS/ML 3 ML PEN SC SCH ×3 (09:24→23:45)
--- NOTE | 2020-03-13 10:50 | Pharmacy Report ---
Glycemic Control Progress Note - Date of Service March 13, 2020 - Scope Glycemic Pharmacist consulted for glycemic control to write orders per [facility] inpatient glycemic control protocol. - Objective Accuchecks BSG(last 24 hours):: 03/12/20 03/12/20 03/12/20 11:23 16:03 16:05 Glucose POC Glucose 234 H 320 H* 294 H 03/12/20 03/13/20 03/13/20 20:42 00:51 04:21 Glucose POC Glucose 291 H 253 H 226 H 03/13/20 03/13/20 06:27 07:39 Glucose 215 H POC Glucose 197 H HbA1c:: Hemoglobin A1c 10.6 % (4.5-5.6) H 03/11/20 15:30 - Recent Pertinent Medications The patient is currently receiving: * Basal insulin: Lantus 15 units every 24 hours * Correctional Insulin: Novolog Correction per scale ACHS Goal Range: Low 110 mg/dL - High 140 mg/dL Correction Factor: 20 mg/dL/unit * Prandial insulin: Per carb ratio of 1 unit per 7 grams CHO consumed - Outpatient Anti-Diabetic Meds n/a- NONCOMPLIANT - Assessment & Plan ASSESSMENT: * See progress note from 03/12/20 for more background info, in short: * Pt receiving SQ basal bolus insulin regimen for hyperglycemia secondary to baseline DM (outpatient regimen on hold),stress/infection (COVID), and Steroids (on dexamethasone 6 mg IV daily) * Patient is currently receiving an average of 55 units of insulin per day * 25 units of basal insulin * 35 units of prandial/correctional insulin * BSGs ranging 137 - 294 mg/dl over the past 24hrs * Changes needed to insulin regimen: * AM Fasting BSG = 197 mg/dl. This is slightly above goal range for patient based on inpatient targets and co-morbidities. Patient received an extra 11 units overnight. Start Lantus 15 units BID (weight-based stress of 2). * Post-prandial BSGs were elevated. Tightened both CF/CR. * Total daily dose = ~70-80 units. Increased insulin appropriately. PLAN FOR INPATIENT GLYCEMIC CONTROL: * INCREASING Lantus to 15 units SQ BID * TIGHTENING correction factor to 15 mg/dl/unit * TIGHTENING carb ratio to 1 unit per 5 grams CHO consumed * Continuing goal range of Low 110 mg/dL - High 140 mg/dL * Please note that the plan above was derived based on current level of insulin resistance and hospital stress. These recommendations are appropriate for inpatient admission only. Plan of care upon discharge will need to be reassessed to avoid potential outpatient hypo/hyperglycemia. Thank you.
[2020-03-13] MEDS ORDERED: INSULIN HUMAN REGULAR PER UNIT 8 UNITS in SYRINGE 7.92 ML IV ONE (12:30)
--- NOTE | 2020-03-13 15:13 | Hospitalist Progress Note ---
Date of Service March 13, 2020 Assessment & Plan (1) Sepsis: COVID-19 Pneumonia Acute respiratory failure with hypoxia CXR:Right infrahilar opacity which favors an infectious process. Radiographic follow-up to ensure resolution is recommended. No Hypercarbia on VBG Lymphocytes:1090 Procalcitonin:0.07 CRP 7.29 Ferritin 637 D-dimer 970 Blood cultures: No growth to date Appreciate Pulmonology Input May not benefit from dexamethasone given no hypoxia May not benefit from Remdesivir--discussed with pulmonology Continue Self Proning Continue empiric antibiotics On Lovenox for DVT Px Saturating 95-96% on room air Repeat COVID markers tomorrow Repeat chest x-ray tomorrow Consider diuretics if needed IVONNE Non compliant with CPAP Sleep study as outpatient DM II Uncontrolled HbA1C: 10.6 Not on any medications at home Discussed importance of insulin therapy--patient currently not interested to continue upon discharge Willing to be initiated on p.o. medications upon discharge Continue Insulin while hospitalized Monitor BGs Chronic systolic heart failure EF 45%, TTE 2019 Monitor volume status Not on diuretics at home Diuretics PRN Hypertension BP slightly elevated Continue Lisinopril Chronic Thrombocytopenia No bleeding issues Monitor Platelets DVT Px: Lovenox SQ Monitor platelets Code Status Full Code Admission and Anticipated Discharge Date Admission Date: March 11, 2020 Subjective Patient is seen and examined at bedside Saturating well on room air Discussed with pulmonology today Denies dyspnea, cough, dizziness, nausea, abdominal pain Discussed with patient's daughter over the phone States feeling better today Generalized weakness, appetite improved Plan to get repeat chest x-ray tomorrow Physical Exam Physical Exam: Physical Exam: Vitals signs as noted above General Appearance:Moderately built and nourished, no apparent distress Head: normocephalic, Atraumatic Eyes: normal inspection, EOMI Neck: supple, Trachea midline Respiratory/Chest: Normal breath sounds, basal crackles Cardiovascular: S1, S2, No murmur Abdomen/GI:Soft, Non tender, Bowel sounds present Extremities/Musculoskelatal:normal inspection, no edema Neurologic/Psych:AAOX3, grossly no focal neurological deficits Skin: normal color, warm Results & Data Results & Data ([facility]) Vital Signs (Past 12 Hours) Vital Signs Temp Pulse Resp BP Pulse Ox 03/13/20 07:40 36.6 C 73 16 151/85 H 95 03/13/20 04:27 36.4 C L 64 20 137/69 95
[2020-03-13] MEDS: cefTRIAXone SODIUM 1,000 MG in DEXTROSE 5% 50 ML IV SCH (21:28)
[2020-03-14 06:46] LABS: Hematocrit (blood only) 38.3 % (42-52); Hemoglobin 13.6 g/dL (14.0-18.0); Mean Corpuscular Hemoglobin 29.8 pg (25-34); Mean Corpuscular Hgb Conc 35.5 g/dL (32-36); Mean Corpuscular Volume 83.8 fL (80-100); Mean Platelet Volume 11.5 fL (7.4-10.4); Platelet Count 153 K/uL (130-400); RDW Standard Deviation 36.7 fL (36.4-46.3); Red Blood Count 4.57 M/uL (4.7-6.1); White Blood Count 9.04 K/uL (4.8-10.8)
[2020-03-14 07:02] LABS: D Dimer 880 ug/L FEU (0-500)
[2020-03-14 07:12] LABS: Basophils # (auto) 0.01 K/uL (0-0.2); Basophils % (auto) 0.1 %; Immature Granulocytes # (auto) 0.03 K/uL (0.00-0.02); Immature Granulocytes % (auto) 0.3 %; Lymphocytes # (auto) 1.06 K/uL (1.2-3.4); Lymphocytes % (auto) 11.7 %; Monocytes # (auto) 0.74 K/uL (0.11-0.59); Monocytes % (auto) 8.2 %; Neutrophils % (auto) 79.7 %
[2020-03-14 07:14] LABS: BUN Creatinine Ratio 27.7 (10-20); Calcium 8.6 mg/dl (8.5-10.1); Creatinine Clr Calc Pharmacy 61.3 ml/min; Est GFR (African American) 79.4; Est GFR (Non-African American) 68.5; Potassium 3.8 mmol/L (3.5-5.1)
[2020-03-14 07:18] LABS: Ferritin 525.9 ng/ml (8-388)
[2020-03-14] MEDS: INSULIN ASPART 100 UNITS/ML 3 ML PEN SC SCH ×3 (08:39→17:20)
[2020-03-14] MEDS: ENOXAPARIN INJ 40 MG/0.4 ML SYR SQ SCH (08:42)
[2020-03-14] MEDS: FAMOTIDINE 10 MG TABLET PO SCH (08:43)
[2020-03-14] MEDS: MULTIVITAMIN TAB PO SCH (08:43)
[2020-03-14] MEDS: DOXYCYCLINE HYCLATE 100 MG CAP PO SCH (08:43)
[2020-03-14] MEDS: lisinopriL 10 MG TAB PO SCH (08:43)
[2020-03-14] MEDS ORDERED: INSULIN GLARGINE SOLOSTAR 100 UNITS/ML 3 ML PEN SC SCH (09:00)
--- NOTE | 2020-03-14 09:03 | XRay Report ---
XR chest 1V portable CLINICAL HISTORY: COVID COMPARISON STUDY: Chest radiograph March 11, 2020. FINDINGS: Right infrahilar opacity has slightly improved. Additional right upper and left lower lung airspace opacity has increased. Note is made of cardiomegaly without evidence for pulmonary edema. Th ere is no pneumothorax or pleural effusion. IMPRESSION: Slight improvement in right infrahilar opacity with interval development of several faisal tional bilateral airspace opacities which represent an infectious process. ACT 112: Negative or not required by law. Electronically signed by: Mendoza Llanes M.D. 03/14/2020 9:02 AM
--- NOTE | 2020-03-14 11:30 | Pharmacy Report ---
Pharmacy Glycemic Short Note 2 - Date of Service March 14, 2020 - Glycemic Short BSG Results (Last 24 hours): 03/13/20 03/13/20 03/13/20 11:45 11:46 11:47 Glucose POC Glucose 364 H* 307 H* 331 H* 03/13/20 03/13/20 03/13/20 16:58 20:53 23:26 Glucose POC Glucose 118 H 88 118 H 03/14/20 03/14/20 05:40 07:49 Glucose 111 H POC Glucose 109 H OUTPATIENT ANTIDIABETIC REGIMEN: * n/a * A1c = 10.6% 03/11/20 ASSESSMENT: * Type 2 diabetic admitted with COVID19 viral pneumonia * BSGs have been somewhat erratic, likely in part due to IV dexamethasone administration. No IV dexamethasone given today as the order is on hold. * Fasting BSG 109 this AM with 15 units of basal insulin on board. HS dose of basal held last evening due to BSG in 80s and patient refusal. * BSGs did trend down the second half of the day yesterday, Novolog doses were effective at combating severe hyperglycemia however doses may be to large for ongoing therapy. Now that steroids are on hold, will scale back Novolog doses PLAN FOR INPATIENT GLYCEMIC CONTROL: * Hold outpatient oral diabetes medications * Basal insulin * Lantus 20 units SQ Q AM * Bolus insulin * NovoLog per scale ACHS or Q6hrs while NPO * Goal Range: Low 110 mg/dL - High 140 mg/dL * Correction Factor: 18 mg/dL/unit * Nutritional / Prandial insulin per carb ratio of 1 unit per 6 grams CHO consumed PLAN FOR DISCHARGE: * to be determined, given A1c patient ideally would be started on insulin therapy. If patient cannot be started on insulin therapy, 2-3 agents will likely be required to achieve A1c goals. Metformin (500mg XR daily initially) could be considered along with SGLT2i (empagliflozin) or GLP1RA (however GLP1RA are often expensive and may require prior auth and most are injectables - and patient is not currently willing to use injectables).
--- NOTE | 2020-03-14 15:26 | Ultrasound Report ---
US venous doppler LE BI CLINICAL HISTORY: Elevated d-dimer COMPARISON STUDY: No previous studies for comparison. FINDINGS: Real-time and color flow Doppler imaging were performed. Flow was seen within the femoral, popliteal and calf veins with no intraluminal thrombus demonstrated. The saphenous vein is patent. IMPRESSION: No evidence of lower extremity DVT. ACT 112: Negative or not required by law. Electronically signed by: David Dave M.D. 03/14/2020 3:25 PM
[2020-03-14] MEDS ORDERED: amLODIPine BESYLATE 5 MG TAB PO ONE (15:40)
--- NOTE | 2020-03-14 15:47 | Hospitalist Progress Note ---
Date of Service March 14, 2020 Assessment & Plan (1) Sepsis: COVID-19 Pneumonia Acute respiratory failure with hypoxia CXR:Right infrahilar opacity which favors an infectious process. Radiographic follow-up to ensure resolution is recommended. No Hypercarbia on VBG Lymphocytes:1090 Procalcitonin:0.07>>0.07 CRP 7.29 Ferritin 637>>525 D-dimer 970>>880 Venous Doppler:No evidence of lower extremity DVT. Blood cultures: No growth to date Appreciate Pulmonology Input May not benefit from dexamethasone given no hypoxia May not benefit from Remdesivir--discussed with pulmonology Continue Self Proning Received empiric antibiotics On Lovenox for DVT Px Saturating 96% on room air Plan to discharge home today Reviewed CXR with Pulmonology --Advised to add mucinex Advised to seek immediate medical attention if your symptoms reoccur or worsen Update family about patient's condition IVONNE Non compliant with CPAP Sleep study as outpatient DM II Uncontrolled HbA1C: 10.6 Not on any medications at home Discussed importance of insulin therapy--patient currently not interested to continue upon discharge Willing to be initiated on p.o. medications upon discharge Continue Insulin while hospitalized Monitor BGs Billing Adjudicator consulted Chronic systolic heart failure EF 45%, TTE 2019 Monitor volume status Not on diuretics at home Diuretics PRN Hypertension BP slightly elevated Continue Lisinopril Added Amlodipine Chronic Thrombocytopenia No bleeding issues Platelet count normalized DVT Px: Lovenox SQ Code Status Full Code Admission and Anticipated Discharge Date Admission Date: March 11, 2020 Subjective Patient is seen and examined at bedside Offers no specific complaints Denies shortness of breath, cough, dizziness, nausea, abdominal pain Discussed with pulmonology and patient's family today Patient refuses to use insulin upon discharge He is willing to take oral diabetic medications Venous Doppler showed no evidence of deep vein thrombosis Review of Systems Review of Systems: All systems reviewed & are unremarkable except as noted in HPI & below Physical Exam Physical Exam: Physical Exam: Vitals signs as noted above General Appearance:Moderately built and nourished, no apparent distress Head: normocephalic, Atraumatic Eyes: normal inspection, EOMI Neck: supple, Trachea midline Respiratory/Chest: Normal breath sounds, minimal basal crackles Cardiovascular: S1, S2, No murmur Abdomen/GI:Soft, Non tender, Bowel sounds present Extremities/Musculoskelatal:normal inspection, no edema Neurologic/Psych:AAOX3, grossly no focal neurological deficits Skin: normal color, warm Results & Data Results & Data ([facility]) Vital Signs (Past 12 Hours) Vital Signs Temp Pulse Resp BP BP Pulse Ox 03/14/20 15:32 36.4 C L 69 18 171/89 H 96 03/14/20 11:35 36.4 C L 75 18 142/89 H 94 03/14/20 07:47 36.5 C 67 18 146/85 H 94 03/14/20 05:00 60 18 97 Laboratory Results Short CBC 03/14/20 Range/Units 05:40 WBC 9.04 (4.8-10.8) K/uL Hgb 13.6 L (14.0-18.0) g/dL Hct 38.3 L (42-52) % Plt Count 153 D (130-400) K/uL BMP 03/14/20 05:40 Sodium 140 Potassium 3.8 Chloride 110 H Carbon Dioxide 24 BUN 30 H Creatinine 1.07 Glucose 111 H Calcium 8.6
--- NOTE | 2020-03-14 16:58 | Discharge Summary ---
Date of Service March 14, 2020 Admission HPI Per Admitting Provider History obtained from patient and records. Medical history significant for chronic systolic heart failure (EF 45%, TTE 2019), hypertension, hyperlipidemia, DM 2 diet-controlled, chronic thrombocytopenia, skin cancer status post surgery, medication/medical care noncompliance as per records. 1 week history of cough symptoms initially dry later productive of yellow sputum. Denies chest pain. Some shortness of breath as per patient. [facility] contacts at [facility] No aspiration. Some chills at home. Patient seen at PCP's office. Directed to the ER for evaluation. Medical History as above Surgical History : Tonsillectomy/adenoidectomy, nasal septum repair, scalp skin cancer surgery Family History : Diabetes, colorectal cancer Personal/Social history : Non-smoker, no EtOH intake, retired from road crew roofing laborer Admission Exam Per Admitting Provider Physical Exam Physical Exam: GENERAL: Slightly uncomfortable, minimal respiratory distress SKIN: Normal color, warm HEENT: [place] palpebral conjunctivae, no ptosis, dry buccal mucosa NECK : Supple, no tenderness CHEST : Decreased breath sounds, occasional expiratory wheezes, no tenderness HEART : RRR, no obvious murmurs ABDOMEN: Some distention, nontender EXTREMITIES : No LE swelling/tenderness, no other conspicuous deformities noted NEUROLOGIC : Coherent, no facial asymmetry, mild hearing impairment, no other gross focality Principal Diagnosis COVID-19 Pneumonia Uncontrolled diabetes mellitus Thrombocytopenia Discharge Data Allergies Allergy/AdvReac Type Severity Reaction Status Date / Time aspirin Allergy Intermediate "it puts Verified 11/24/18 11:26 holes in my stomach" Consultations 03/11/20 19:22 ED Decision to Admit Stat Procedures Performed CXR:Right infrahilar opacity which favors an infectious process. Radiographic follow-up to ensure resolution is recommended. Venous Doppler:No evidence of lower extremity DVT. Ordered Studies 03/14/20 08:30 US venous doppler LE BI Urgent Diabetes Follow up Diabetes Follow-up Needed for HgbA1c >9% Hospital Course (1) Sepsis: COVID-19 Pneumonia Acute respiratory failure with hypoxia CXR:Right infrahilar opacity which favors an infectious process. Radiographic follow-up to ensure resolution is recommended. No Hypercarbia on VBG Lymphocytes:1090 Procalcitonin:0.07>>0.07 CRP 7.29 Ferritin 637>>525 D-dimer 970>>880 Venous Doppler:No evidence of lower extremity DVT. Blood cultures: No growth to date Appreciate Pulmonology Input May not benefit from dexamethasone given no hypoxia May not benefit from Remdesivir--discussed with pulmonology Continue Self Proning Received empiric antibiotics On Lovenox for DVT Px Saturating 96% on room air Plan to discharge home today Reviewed CXR with Pulmonology --Advised to add mucinex Advised to seek immediate medical attention if your symptoms reoccur or worsen Update family about patient's condition IVONNE Non compliant with CPAP Sleep study as outpatient DM II Uncontrolled HbA1C: 10.6 Not on any medications at home Discussed importance of insulin therapy--patient currently not interested to continue upon discharge Willing to be initiated on p.o. medications upon discharge Continue Insulin while hospitalized Monitor BGs Twister In consulted Chronic systolic heart failure EF 45%, TTE 2018 Monitor volume status Not on diuretics at home Diuretics PRN Hypertension BP slightly elevated Continue Lisinopril Added Amlodipine Chronic Thrombocytopenia No bleeding issues Platelet count normalized DVT Px: Lovenox SQ Code Status Full Code Total Time Total Time Spent Total Time Spent (In Minutes): 39 minutes Total Time Includes: Examination of the Patient, Discharge Planning, Medication Reconciliation, Communication With Other Providers and Other Discharge Plan Discharge Items Patient Disposition: Home - Self-Care Reason For Visit: SEPSIS Discharge Diagnosis: COVID-19 Pneumonia Uncontrolled diabetes mellitus Thrombocytopenia Activity: Per Instructions section Exercise/Sports: Wait until after follow-up appointment Non-emergency contact: Primary Care Provider Call non-emergency contact if: you have any medication questions, your symptoms worsen, your pain is not controlled, your pain is worsening, your pain is unusual for you, your pain is concerning for you and you have a fever Follow-up/Referrals: Constantino Franco DO [Outside Practitioners] - 03/18/20 11:20 am (Date & Time 03/18/2020 11:20 AM Provider Constantino Franco DO Department Family Practice [facility] THIS IS A TELEPHONE CALL VISIT. THE PROVIDER WILL CALL YOU AT YOUR APPOINTMENT TIME.) Diet: Carb Consistent or DM2 and Heart Healthy Addtl Attending Provider Instructions: Follow-up with your primary care physician Dr. Franco on 03/18/2020 11:20 AM Use Pulse Oximeter to monitor your Oxygen levels as instructed. (If Oxygen Saturation less than 94%---Discuss with your physician for further instructions) Take medications regularly Discussed with the physician regarding management of your diabetes, high blood pressure Check your blood glucose levels regularly. Seek immediate medical attention if your symptoms reoccur or worsen Your blood cultures are pending at the time of discharge. Follow-up with your physician for results. Complete antibiotic course as prescribed. Home Isolation COVID-19 Instructions The following information about Home Isolation is from the CDC Website: https://www.cdc.gov/coronavirus/2019-ncov/hcp/cqkjaiwl-qufinjs-qvuzlz.html Stay home except to get medical care People who are mildly ill with COVID-19 are able to isolate at home during their illness. You should restrict activities outside your home, except for getting medical care. Do not go to work, school, or public areas. Avoid using public transportation, ride-sharing, or taxis. Separate yourself from other people and animals in your home People: As much as possible, you should stay in a specific room and away from other people in your home. Also, you should use a separate bathroom, if available. Animals: You should restrict contact with pets and other animals while you are sick with COVID-19, just like you would around other people. Although there have not been reports of pets or other animals becoming sick with COVID-19, it is still recommended that people sick with COVID-19 limit contact with animals until more information is known about the virus. When possible, have another member of your household care for your animals while you are sick. If you are si ck with COVID-19, avoid contact with your pet, including petting, snuggling, being kissed or licked, and sharing food. If you must care for your pet or be around animals while you are sick, wash your hands before and after you interact with pets and wear a face mask. Call ahead before visiting your doctor If you have a medical appointment, call the healthcare provider and tell them that you have or may have COVID-19. This will help the healthcare providers office take steps to keep other people from getting infected or exposed. Wear a face mask You should wear a face mask when you are around other people (e.g., sharing a room or vehicle) or pets and before you enter a healthcare providers office. If you are not able to wear a face mask (for example, because it causes trouble breathing), then people who live with you should not stay in the same room with you, or they should wear a face mask if they enter your room. Cover your coughs and sneezes Cover your mouth and nose with a tissue when you cough or sneeze. Throw used tissues in a lined trash can. Immediately wash your hands with soap and water for at least 20 seconds or, if soap and water are not available, clean your hands with an alcohol-based hand faceter that contains at least 60% alcohol. Clean your hands often Wash your hands often with soap and water for at least 20 seconds, especially after blowing your nose, coughing, or sneezing; going to the bathroom; and before eating or preparing food. If soap and water are not readily available, use an alcohol-based hand faceter with at least 60% alcohol, covering all surfaces of your hands and rubbing them together until they feel dry. Soap and water are the best option if hands are visibly dirty. Avoid touching your eyes, nose, and mouth with unwashed hands. Avoid sharing personal household items You should not share dishes, drinking glasses, cups, eating utensils, towels, or bedding with other people or pets in your home. After using these items, they should be washed thoroughly with soap and water. Clean all high-touch surfaces everyday High touch surfaces include counters, tabletops, doorknobs, bathroom fixtures, toilets, phones, keyboards, tablets, and bedside tables. Also, clean any surface s that may have blood, stool, or body fluids on them. Use a household cleaning spray or wipe, according to the label instructions. Labels contain instructions for safe and effective use of the cleaning product including precautions you should take when applying the product, such as wearing gloves and making sure you have good ventilation during use of the product. Monitor your symptoms Seek prompt medical attention if your illness is worsening (e.g., difficulty breathing).Beforeseeking care, call your healthcare provider and tell them that you have, or are being evaluated for, COVID-19. Put on a face mask before you enter the facility. These steps will help the healthcare providers office to keep other people in the office or waiting room from getting infected or exposed. Ask your healthcare provider to call the local or state health department. Persons who are placed under active monitoring or facilitated self- monitoring should follow instructions provided by their local health department or occupational health professionals, as appropriate. When working with your local health department check their available hours. If you have a medical emergency and need to call 911, notify the dispatch personnel that you have, or are being evaluated for COVID-19. If possible, put on a face mask before emergency medical services arrive. Discontinuing home isolation Patients with confirmed COVID-19 should remain under home isolation precautions until the risk of secondary transmission to others is thought to be low. The decision to discontinue home isolation precautions should be made on a cmzz-se-ycil basis, in consultation with healthcare providers and state and local health departments. Coronavirus disease 2019 (COVID-19) is a virus that causes a respiratory illness. It is caused by a coronavirus called 2019 novel coronavirus (2019- nCoV). There are many types of coronavirus. Coronaviruses are a very common cause of bronchitis. They may sometimes cause lung infection(pneumonia). Symptoms can range from mild to severe respiratory illness. These viruses are also foundin some animals. COVID-19 was first found in people in [facility], in late 2019. In 2020, several cases of COVID-19 have been confirmed in the [place] Public health officials are working to find the source. How the virus spreads is not yet fully known. It may be spread through droplets of fluid that a person coughs or sneezes into the air. It may be spread if you touch a surface with virus on it, such as a handle or object, and then touch your mouth. What are the symptoms of COVID-19? Some people have no symptoms or mild symptoms. Symptoms may appear 2 to 14 days after contact with the virus. Symptoms can include: Fever Coughing Trouble breathing What are possible complications from COVID-19? In many cases, this virus can cause infection (pneumonia) in both lungs. In some cases, this can cause . How is COVID-19 diagnosed? Your healthcare provider will ask about your symptoms. He or she will also ask about your recent travel and contact with sick people. Testing for the virus is only done through the CDC. If yourhealthcare provider thinks you may have COVID- 19, he or she will work with your local health department and the CDC on testing. Follow all instructions from your healthcare provider. COVID-19 is diagnosed by: Nasal and throat swab. A cotton-tipped swab is wiped inside your nose or throat. This is done to check for viruses in your nasal mucus. Sputum culture. A small sample of mucus coughed from your lungs (sputum) is collected if you have a cough. It is checked for the virus. How is COVID-19 treated? There is currently no medicine to treat the virus. Treatment is done to help your body while it fights the virus. This is known as supportive care. Supportive care may include: Pain medicine. These include acetaminophen and ibuprofen. They are used to help ease pain and reduce fever. Bed rest. This helps your body fight the illness. For severe illness, you may need to stay in the hospital. Care during severe illness may include: IV (intravenous) fluids.These are given through a vein to help keep your body hydrated. Oxygen. Supplemental oxygen or ventilation with a breathing machine (ventilator) may be given. This is done to keep enough oxygen in your body. Are you at risk for COVID-19? If youve been to a place where people have been sick with this virus, you are at risk for infection. You are at risk if you: Recently traveled to an affected area Had contact with a sick person who recently traveled to this area Had contact with a person who was diagnosed with COVID-19 How can COVID-19 be prevented? There is no vaccine yet. The best prevention is to not have contact with the virus. The CDC advises that people should not travel to areas where there are COVID-19 outbreaks right now for any reason that is not urgent. To help prevent spreading the infection, wash your hands often, or use an alcohol-basedhand faceter. If you are in an area with COVID-19: Wash your hands often. Or use an alcohol-based hand faceter often. Only touch your eyes, nose, or mouth with clean hands. Dont have contact with people who are sick. Follow local instructions about being in public. For example, you may be told to not use public transport for a period of time. Stay away from markets that have live or animals. Wash your hands after touching any animals. Don't touch animals that may be sick. Dont share eating or drinking tools with sick people. Dont kiss someone who is sick. Clean surfaces often with disinfectant. If you were in an area with COVID-19 in the last 14 days: Call your healthcare provider. He or she can talk with local health staff to see what action may be needed. Follow all instructions from your provider. Take your temperature every morning and evening for at least 14 days. This is to check for fever. Keep a record of the readings. Keep watch for symptoms of the virus. Tell your provider right away if you have symptoms. If you were in an area with COVID-19 and have a fever or other symptoms: Dont panic. Keep in mind that other illnesses can cause similar symptoms. Stay away from work, school, and public places. Limit physical contact with family members. Don't kiss anyone or share eating or drinking utensils. Clean surfaces you touch with disinfectant. This is to help prevent the virus from spreading. Call your healthcare provider. Explain that you have been exposed to COVID-19 and have symptoms. Do this before going to any hospital. Wait for instructions. Keep in mind that healthcare staff may wear protective equipment such as masks, gowns, gloves, and eye protection. You may be put in a separate room. This is to prevent the possible virus from spreading. Tell the healthcare staff about recent travel. This includes local travel on public transport. Staff may need to find other people you have been in contact with. Follow all instructions the healthcare staff give you. If you have been diagnosed with COVID-19 Follow all instructions from your healthcare provider. Dont leave your home, except to get medical care. Call your healthcare providers office before going. They can prepare and give you instructions. This will help prevent the virus from spreading. Dont go to work, school, or public areas. Dont use public transport or taxis. Stay away from other people in your home. Have them wear face masks around you. Dont share household items or food. Wear a face mask if you can. This includes at home or in a medical facility. Cover your face with a tissue when you cough or sneeze. Throw the tissue away. Wash your hands. Wash your hands often. Caregivers should: Follow all instructions from healthcare staff. Wear a face mask and protective clothing as advised. Wash hands often. Keep track of the sick persons symptoms. Clean surfaces, fabrics, and laundry thoroughly. Keep other people away from the sick person. When to call your healthcare provider Call your healthcare provider: If youve recently traveled and have symptoms If you have been diagnosed with COVID-19 and your symptoms are worse To learn more To find out more about COVID-19, visit the CDC website at www.cdc.gov/coronavirus/2019-ncov/index.html. 1957[address] [employer] [place] [address]. All rights reserved. This information is not intended as a substitute for professional medical care. Always follow your healthcare professional's instructions. This information has been adapted from [employer] Pending Studies at Discharge: Yes Studies:: Blood Cultures Stand-Alone Forms: [facility], Smoking Cessation Medications and DC Order Prescriptions: New doxycycline hyclate 100 mg Capsule 100 mg PO BID Qty: 10 RF: 0 amlodipine [Norvasc] 5 mg Tablet 2.5 mg PO QAM Qty: 30 RF: 0 levalbuterol tartrate [Xopenex HFA] 45 mcg/actuation Hfa Aerosol Inhaler 2 puff inhalation Q4H PRN (Reason: shortness of breath or wheezing) Qty: 1 RF: 0 guaifenesin [Mucinex] 600 mg Tablet Extended Release 12hr 600 mg PO Q12 7 Days Qty: 14 RF: 0 Januvia 100 mg tablet 100 mg PO DAILY Qty: 30 RF: 0 (DME) lancets [OneTouch Delica Lancets] 30 gauge misc See Rx Instructions .ROUTE .MEDSUPPLY Qty: 100 RF: 0 (DME) OneTouch Verio test strips Strip See Rx Instructions .ROUTE .MEDSUPPLY Qty: 100 RF: 0 Continued multivitamin Tablet 1 tab PO QAM RF: 0 lisinopril 10 mg Tablet 10 mg PO QAM RF: 0 Discharge Orders: Discharge Order (Routine); Ordered 03/14/20 Ordered By: Jason Raymond Admission Data Admit Date/Time: 03/11/20 20:25 Attending Provider: Jason Raymond Admit Provider: Markos Carballo Primary Care Provider: PCP,NO Other Providers: Markos Carballo Other Interventions: Discharge Summary Assessment (RN) Last Done: 03/14/20 17:04
[2020-03-14] MEDS ORDERED: guaiFENesin 600 MG TABCR PO SCH (21:00)
[2020-03-15] MEDS ORDERED: amLODIPine BESYLATE 5 MG TAB PO SCH (09:00)
--- NOTE | 2020-03-24 12:16 | Coding Query ---
To promote full compliance with coding requirements relating to patient care, provider participation is requested in all cases of coder operator uncertainty. Please assist us with the question(s) below: Coding Question(s): The diagnosis below was documented as the reason for visit but not listed as a discharge diagnosis. Please indicate if it is still a possible diagnosis or ruled out. Physician's Response(s): SEPSIS ( ) Diagnosed and POA ( ) Diagnosed and not POA (x ) Ruled out ( ) Other (please specify) MTDD
== END 2020-03-14 19:23 | disposition home or self-care (01) | DRG 177 ==
LOC: ED 13:52 → 2E 20:25